=== PATIENT | male | born 1960 | race Caucasian/White ===

== ENCOUNTER 2020-01-30 09:12 | Observation (INO) ==
[2020-01-30 10:26] LABS: Basophils % 0.3 % (0.0-0.8); Eosinophils # 0.1 10*3/uL (0.0-0.87); Hematocrit 47.4 VOL% (42.0-52.0); Hemoglobin 15.7 GM/DL (14.0-18.0); Immature Granulocytes % 0.2 %; Immature Granulocytes Absolute 0.02 #; Lymphocytes # 2.5 10*3/uL (1.4-4.0); Lymphocytes % 28.1 % (21.2-54.2); Mean Corpuscular HGB Conc 33.1 GM/DL (32-36); Mean Corpuscular Volume 85.3 FL (87-102); Monocytes % 6.9 % (1.7-12.7); Neutrophils % 63.5 % (38.7-73.9); Platelet Count 198 T/CUMM (130-400); Red Blood Count 5.56 MC/CUMM (3.8-5.5); Red Cell Distribution Width 13.3 % (9.3-17.3); White Blood Count 9.1 T/CUMM (4-12)
[2020-01-30 10:40] LABS: PT Patient Result 11.2 SECS (9.8-11.9)
[2020-01-30 11:08] LABS: Albumin 4.1 G/DL (3.4-5.0); Bilirubin,Total 1.5 MG/DL (0.2-1.0); Calcium 9.3 MG/DL (8.5-10.1); Osmolality,Calculated 283.4 MOS/KG (273-304); Total Protein 7.8 G/DL (6.4-8.3)
[2020-01-30] MEDS ORDERED: ACETAMINOPHEN 325 MG TABLET PO PRN (12:34)
[2020-01-30] MEDS ORDERED: DOCUSATE SODIUM 100 MG CAPSULE PO PRN (12:34)
[2020-01-30] MEDS ORDERED: ONDANSETRON 4 MG/2 ML VIAL IV PRN (12:34)
[2020-01-30] MEDS ORDERED: hydrALAZINE 20 MG/1 ML VIAL ONE (12:38)
[2020-01-30] MEDS: hydrALAZINE 20 MG/1 ML VIAL IV PRN ×3 (12:43→22:35)
[2020-01-30 13:21] LABS: Vitamin B12 394 PG/ML (211-911)
[2020-01-30 13:44] LABS: Apearance,Urine CLEAR (Clear); Bilirubin,Urine Negative (Negative); Blood, Urine Small mg/dL (Negative); Calcium Oxalate Crystals,Urine Occasional /HPF (Few); Glucose,Urine (UA) Negative (Negative); Hyaline Casts,Urine 16 /LPF (0-3); Ketones,Urine Negative (Negative); Mucus,Urine Occasional /LPF (Occasional); Nitrite,Urine Negative (Negative); Protein,Urine 100 MG/DL; RBC,Urine 2 /HPF (0-4); Urine Color Yellow (Yellow); Urine Specific Gravity 1.021 (1.001-1.035); Urine Urobilinogen < 2.0 EU/DL (0.2-1.0); WBC,Urine 5 /HPF (0-6)
[2020-01-30 13:48] LABS: Barbiturates Screen,Urine Negative (Negative); Benzodiazepines Screen,Urine Negative (Negative); Cannabinoid Screen,Urine Positive (Negative); Opiate Screen,Urine Negative (Negative); Phencyclidine Screen,Urine Negative (Negative)
[2020-01-30] MEDS ORDERED: THIAMINE INJ 100 MG, FOLIC ACID INJ 1 MG, MULTIVITAMIN INJ 10 ML in SODIUM CHLORIDE 0.9... IV ONE (14:24)
[2020-01-30] MEDS ORDERED: lisinopriL 10 MG TABLET PO SCH (15:00)
[2020-01-30] MEDS ORDERED: ZIPRASIDONE 20 MG CAPSULE PO PRN (17:28)
[2020-01-30] MEDS ORDERED: LORazepam 2 MG/1 ML VIAL IV PRN (17:28)
[2020-01-30] MEDS: MIRTAZAPINE 15 MG TABLET PO SCH (18:44)
[2020-01-31] MEDS ORDERED: hydrALAZINE 20 MG/1 ML VIAL IV ONE (00:32)
[2020-01-31 08:53] LABS: Calcium 8.9 MG/DL (8.5-10.1); Osmolality,Calculated 282.4 MOS/KG (273-304)
[2020-01-31] MEDS ORDERED: amLODIPine 5 MG TABLET PO SCH (09:00)
[2020-01-31] MEDS: MIRTAZAPINE 15 MG TABLET PO SCH (10:15)
[2020-01-31] MEDS: hydrALAZINE 20 MG/1 ML VIAL IV PRN (10:15)
[2020-01-31] MEDS ORDERED: amLODIPine 10 MG TABLET PO SCH (13:37)
[2020-01-31] MEDS ORDERED: POTASSIUM CHLORIDE 20 MEQ TABLET PO ONE (13:37)
[2020-01-31 15:38] VITALS: BP 154/82
== END 2020-01-31 17:59 | disposition home or self-care (01) ==
LOC: N.ED 09:12 → N.EDINP 09:12 → N.3E 16:06
PROVIDERS: ADMIT Internal Medicine; ATTEND Internal Medicine